=== PATIENT | female | born 1940 | race Caucasian/White ===

== ENCOUNTER 2020-10-25 14:35 | Observation (INO) | payer MEDICARE, BC ==
[2020-10-25 15:46] LABS: #Basophils 0.1 10x3/uL (0.0-0.2); #Eosinphils 0.2 10x3/uL (0.0-0.5); #Monocytes 0.9 10x3/uL (0.0-1.1); %Basophils 0.5 % (0.0-2.0); %Eosinophils 1.7 % (0.0-6.0); %Lymphocytes 30.9 % (18.0-47.0); %Monocytes 8.3 % (0.0-10.0); %Neutrophils 58.2 % (40.0-75.0); Hemoglobin 13.9 g/dL (12.0-15.5); Mean Corpuscular HGB CONC 33.2 g/dL (32.0-36.0); Mean Corpuscular Hemoglobin 30.4 pg (27.0-33.0); Mean Corpuscular Volume 91.7 fl (81.6-98.3); Platelet Count 297 10x3/uL (150-450); RBC Distribution Width 12.7 % (11.5-14.5); Red Blood Cell (RBC) Count 4.57 10x6/uL (3.90-5.03); White Blood Cell (WBC) Count 10.3 10x3/uL (3.5-10.5)
[2020-10-25 16:03] LABS: ALT (SGPT) 41 U/L (8-55); AST (SGOT) 52 U/L (5-34); Albumin 4.5 g/dL (3.4-4.8); Alkaline Phosphatase 128 U/L (40-110); Anion Gap 18 mmol/L (10-20); BUN (Urea Nitrogen) 25 mg/dL (9.8-20.1); Bilirubin, Total 0.5 mg/dL (0.2-1.2); Calc. Creatinine Clearance 0 mL/min (70-130); Calcium 10.7 mg/dL (7.8-10.44); Carbon Dioxide 24 mmol/L (23-31); Chloride 102 mmol/L (98-107); Globulin 3.4 g/dL (2.4-3.5); Glucose 91 mg/dL (83-110); Potassium 4.2 mmol/L (3.5-5.1); Protein, Total 7.9 g/dL (5.8-8.1); Sodium 140 mmol/L (136-145)
[2020-10-25] MEDS ORDERED: Nitroglycerin 0.4 MG TAB (25 Tab Bottle) SL PRN (16:58)
[2020-10-25] MEDS ORDERED: Ondansetron PF 4 MG/2 ML Vial IVP PRN (17:01)
[2020-10-25] MEDS ORDERED: Nitroglycerin 2% Ointment 1 INCH/1 GM Packet ONE (17:01)
[2020-10-25] MEDS ORDERED: Acetaminophen 325 MG TAB PO PRN (17:01)
[2020-10-25] MEDS ORDERED: Aspirin Chewable 81 MG TAB ONE (17:01)
[2020-10-25] MEDS ORDERED: Ondansetron ODT 4 MG TAB PO PRN (17:01)
[2020-10-25] MEDS ORDERED: Dextrose 50% Abboject 50 ML SYRINGE SLOW IVP PRN (17:03)
[2020-10-25] MEDS ORDERED: HumaLOG 300 UNITS/3 ML VIAL SC PRN ×2 (17:03)
[2020-10-25] MEDS ORDERED: Dextrose 5% in Water 1,000 ML IV PRN (17:03)
[2020-10-25] MEDS ORDERED: hydrALAZINE 20 MG/ML VIAL SLOW IVP PRN (17:28)
[2020-10-25 20:49] VITALS: BMI 34.9
[2020-10-25] MEDS ORDERED: Famotidine 20 MG TAB PO SCH ×2 (21:00)
[2020-10-25] MEDS: Nitroglycerin 2% Ointment 1 INCH/1 GM Packet TOP SCH (23:17)
[2020-10-26] MEDS: Nitroglycerin 2% Ointment 1 INCH/1 GM Packet TOP SCH ×2 (05:42→13:13)
[2020-10-26 05:55] LABS: #Eosinphils 0.2 10x3/uL (0.0-0.5); #Monocytes 0.8 10x3/uL (0.0-1.1); #Neutrophils 4.8 10x3/uL (1.5-8.4); %Basophils 0.4 % (0.0-2.0); %Eosinophils 2.2 % (0.0-6.0); %Lymphocytes 35.6 % (18.0-47.0); %Monocytes 9.1 % (0.0-10.0); %Neutrophils 52.2 % (40.0-75.0); Hemoglobin 12.6 g/dL (12.0-15.5); Mean Corpuscular HGB CONC 33.4 g/dL (32.0-36.0); Mean Corpuscular Hemoglobin 30.2 pg (27.0-33.0); Mean Corpuscular Volume 90.4 fl (81.6-98.3); Platelet Count 297 10x3/uL (150-450); RBC Distribution Width 12.9 % (11.5-14.5); Red Blood Cell (RBC) Count 4.17 10x6/uL (3.90-5.03); White Blood Cell (WBC) Count 9.2 10x3/uL (3.5-10.5)
[2020-10-26 06:04] LABS: ALT (SGPT) 30 U/L (8-55); AST (SGOT) 35 U/L (5-34); Albumin 3.8 g/dL (3.4-4.8); Alkaline Phosphatase 108 U/L (40-110); Anion Gap 14 mmol/L (10-20); BUN (Urea Nitrogen) 23 mg/dL (9.8-20.1); Bilirubin, Total 0.4 mg/dL (0.2-1.2); Calc. Creatinine Clearance 47 mL/min (70-130); Calcium 10.2 mg/dL (7.8-10.44); Carbon Dioxide 25 mmol/L (23-31); Cardiac Risk 5.6 (Less than 4.5); Chloride 106 mmol/L (98-107); Cholesterol 139 mg/dl (< 200 Desired); Globulin 2.8 g/dL (2.4-3.5); Glucose 114 mg/dL (83-110); HDL Cholesterol 25 mg/dL (>60 Neg Risk); Potassium 3.7 mmol/L (3.5-5.1); Protein, Total 6.6 g/dL (5.8-8.1); Sodium 141 mmol/L (136-145); Triglycerides 436 mg/dL (Less than 150)
[2020-10-26 06:22] LABS: Bilirubin Neg (Negative); Blood, Urine Negative (Negative); Clarity Clear (Clear); Glucose, Urine (Dipstick) Normal (Negative); Ketone, Urine Negative (Negative); Leukocyte 100 (Negative); Nitrite Negative (Negative); Protein, Urine (Dipstick) Negative (Neg-Trace); Specific Gravity, Urine 1.015 (1.002-1.036); Urobilinogen Normal mg/dL (Less than 2)
[2020-10-26 06:37] LABS: Bacteria/HPF None Seen HPF (None Seen); RBC/HPF 0-3 HPF (0-3); Squamous Epithelial 0-3 HPF (0-3); Transitional Epithelial 0-3 HPF (None Seen)
[2020-10-26] MEDS ORDERED: Aspirin 325 MG TAB PO SCH (09:00)
[2020-10-26 15:31] VITALS: BP 139/81; TEMP 98.3
[2020-10-26] MEDS ORDERED: Icosapent Ethyl 1 GM CAPSULE PO SCH (17:00)
[2020-10-26 21:43] LABS: SARS-CoV-2 PCR by NAA Not Detected (NotDetected)
[2020-10-27] MEDS ORDERED: Aspirin 81 mg Enteric Coated Tablet PO SCH (09:00)
[2020-10-27] MEDS ORDERED: Amlodipine 5 MG TAB PO SCH (09:00)
[2020-10-27] MEDS ORDERED: Rosuvastatin 20 MG TAB PO SCH (09:00)
[2020-10-27] MEDS ORDERED: ALPRAZolam 0.5 MG TAB PO SCH (09:00)
[2020-10-27] MEDS ORDERED: Ascorbic Acid 500 mg Chewable Tablet PO SCH (09:00)
== END 2020-10-26 16:48 | disposition home or self-care (01) ==
LOC: CSHERS 14:35 → CSHTELE 19:58
PROVIDERS: ADMIT Hospitalist; ATTEND Nurse Practitioner Family
DX: R07.9 Chest pain, unspecified (principal); I16.0 Hypertensive urgency; E11.22 Type 2 diabetes mellitus with diabetic chronic kidney disease; I12.9 Hypertensive chronic kidney disease with stage 1 through stage 4 chronic kidney disease, or unspecified chronic kidney disease; N18.30 Chronic kidney disease, stage 3 unspecified; E78.5 Hyperlipidemia, unspecified; I73.9 Peripheral vascular disease, unspecified; Q28.2 Arteriovenous malformation of cerebral vessels; Z79.899 Other long term (current) drug therapy; Z79.82 Long term (current) use of aspirin; Z95.5 Presence of coronary angioplasty implant and graft; Z90.49 Acquired absence of other specified parts of digestive tract; Z90.710 Acquired absence of both cervix and uterus; Z20.822 Contact with and (suspected) exposure to COVID-19
CPT/HCPCS: 71045; 80053; 80061; 81001; 82962 ×2; 83735; 84484 ×2; 85025; 93005; 93306; 99285; G0378 ×3; U0003; U0005; 36415; 36416; 84443; 87635

== ENCOUNTER 2021-04-30 13:04 | Outpatient (CLI) | payer MEDICARE, BC | END 2021-04-30 13:05 | disposition home or self-care (01) | LOC: CSHMAMMO 13:04 | PROVIDERS: ATTEND Internal Medicine | DX: Z12.31 Encounter for screening mammogram for malignant neoplasm of breast (principal) | CPT/HCPCS: 77063; 77067 ==

== ENCOUNTER 2022-01-03 12:41 | Outpatient (CLI) | payer MEDICARE, BC | END 2022-01-03 12:42 | disposition home or self-care (01) | LOC: CSHULT 12:41 | PROVIDERS: ATTEND Otolaryngology Otolaryngic Allergy | DX: E04.1 Nontoxic single thyroid nodule (principal); E04.2 Nontoxic multinodular goiter | CPT/HCPCS: 76536 ==

== ENCOUNTER 2022-02-09 10:55 | Outpatient (CLI) | payer MEDICARE, BC | END 2022-02-09 10:56 | disposition home or self-care (01) | LOC: CSHRAD 10:55 | PROVIDERS: ATTEND Otolaryngology Otolaryngic Allergy | DX: R13.11 Dysphagia, oral phase (principal); R13.12 Dysphagia, oropharyngeal phase; K21.9 Gastro-esophageal reflux disease without esophagitis | CPT/HCPCS: 74230 ==

== ENCOUNTER 2022-08-08 13:09 | Outpatient (CLI) | payer MEDICARE, BC | END 2022-08-08 13:10 | disposition home or self-care (01) | LOC: CSHMAMMO 13:09 | PROVIDERS: ATTEND Internal Medicine | DX: Z12.31 Encounter for screening mammogram for malignant neoplasm of breast (principal) | CPT/HCPCS: 77063; 77067 ==

== ENCOUNTER 2023-05-08 09:53 | Emergency (ER) | payer MEDICARE, BC ==
[2023-05-08] MEDS ORDERED: Ondansetron PF 4 MG/2 ML Vial ONE (11:10)
[2023-05-08 11:17] LABS: #Basophils 0.1 10x3/uL (0.0-0.2); #Eosinphils 0.2 10x3/uL (0.0-0.5); #Monocytes 0.9 10x3/uL (0.0-1.1); #Neutrophils 6.5 10x3/uL (1.5-8.4); %Basophils 0.6 % (0.0-2.0); %Eosinophils 2.1 % (0.0-6.0); %Lymphocytes 32.7 % (18.0-47.0); %Monocytes 7.6 % (0.0-10.0); %Neutrophils 56.1 % (40.0-75.0); Hematocrit 41.1 % (34.9-44.5); Hemoglobin 13.7 g/dL (12.0-15.5); Mean Corpuscular HGB CONC 33.3 g/dL (32.0-36.0); Mean Corpuscular Hemoglobin 30.6 pg (27.0-33.0); Mean Corpuscular Volume 91.7 fl (81.6-98.3); Mean Platelet Volume 11.2 fl (7.4-10.4); PTT 22.5 sec (22.0-33.0); Platelet Count 283 10x3/uL (150-450); Prothrombin Time 10.5 sec (9.5-12.1); RBC Distribution Width 12.9 % (11.5-14.5); Red Blood Cell (RBC) Count 4.48 10x6/uL (3.90-5.03); White Blood Cell (WBC) Count 11.6 10x3/uL (3.5-10.5)
[2023-05-08 11:22] LABS: ALT (SGPT) 16 U/L (8-55); AST (SGOT) 32 U/L (5-34); Albumin 4.3 g/dL (3.4-4.8); Alkaline Phosphatase 95 U/L (40-110); Anion Gap 16 mmol/L (10-20); BUN (Urea Nitrogen) 26 mg/dL (9.8-20.1); Bilirubin, Total 0.5 mg/dL (0.2-1.2); Calc. Creatinine Clearance 0 mL/min (70-130); Calcium 9.9 mg/dL (7.8-10.44); Carbon Dioxide 23 mmol/L (23-31); Chloride 105 mmol/L (98-107); Estimated GFR 44; Glucose 199 mg/dL (83-110); Potassium 3.7 mmol/L (3.5-5.1); Protein, Total 7.3 g/dL (5.8-8.1); Sodium 140 mmol/L (136-145)
[2023-05-08 11:24] LABS: Troponin I 0.021 ng/mL (< 0.028)
[2023-05-08] MEDS ORDERED: niCARdipine 25 MG/10 ML SDV ONE (11:28)
== END 2023-05-08 12:23 | disposition short-term general hospital (02) ==
LOC: CSHERS 09:53
DX: I61.4 Nontraumatic intracerebral hemorrhage in cerebellum (principal); I10 Essential (primary) hypertension; E11.9 Type 2 diabetes mellitus without complications; E78.00 Pure hypercholesterolemia, unspecified; Z79.899 Other long term (current) drug therapy; Z79.82 Long term (current) use of aspirin
CPT/HCPCS: 36416; 70450; 71045; 80053; 84484; 85025; 85610; 85730; J2405

== ENCOUNTER 2023-06-14 22:04 | Emergency (ER) | payer BC, MEDICARE | END 2023-06-14 23:22 | disposition home or self-care (01) | LOC: CSHERS 22:04 | DX: I10 Essential (primary) hypertension (principal); E11.9 Type 2 diabetes mellitus without complications; E78.00 Pure hypercholesterolemia, unspecified; Z79.899 Other long term (current) drug therapy; Z87.891 Personal history of nicotine dependence | CPT/HCPCS: 70450 ==

== ENCOUNTER 2023-07-23 18:19 | Emergency (ER) | payer MEDICARE ==
[2023-07-23 20:13] LABS: #Eosinphils 0.1 10x3/uL (0.0-0.5); #Monocytes 0.7 10x3/uL (0.0-1.1); #Neutrophils 5.9 10x3/uL (1.5-8.4); %Basophils 0.3 % (0.0-2.0); %Eosinophils 1.1 % (0.0-6.0); %Monocytes 7.9 % (0.0-10.0); %Neutrophils 64.3 % (40.0-75.0); Hematocrit 40.3 % (34.9-44.5); Hemoglobin 13.9 g/dL (12.0-15.5); Mean Corpuscular HGB CONC 34.5 g/dL (32.0-36.0); Mean Corpuscular Hemoglobin 31.6 pg (27.0-33.0); Mean Corpuscular Volume 91.6 fl (81.6-98.3); Mean Platelet Volume 10.7 fl (7.4-10.4); Platelet Count 256 10x3/uL (150-450); RBC Distribution Width 12.8 % (11.5-14.5); White Blood Cell (WBC) Count 9.2 10x3/uL (3.5-10.5)
[2023-07-23 20:37] LABS: Bilirubin Neg (Negative); Blood, Urine 10 (Negative); Clarity Slightly Cloudy (Clear); Glucose, Urine (Dipstick) Normal (Negative); Ketone, Urine 5 mg/dL (Negative); Leukocyte 500 (Negative); Nitrite Negative (Negative); Protein, Urine (Dipstick) 100 mg/dl (Neg-Trace); Specific Gravity, Urine 1.015 (1.005-1.030); Urobilinogen Normal mg/dL (Less than 2)
[2023-07-23 20:42] LABS: ALT (SGPT) 14 U/L (8-55); AST (SGOT) 21 U/L (5-34); Albumin 4.3 g/dL (3.4-4.8); Alkaline Phosphatase 95 U/L (40-110); Anion Gap 15 mmol/L (10-20); BUN (Urea Nitrogen) 24 mg/dL (9.8-20.1); Bilirubin, Total 0.3 mg/dL (0.2-1.2); Calc. Creatinine Clearance 0 mL/min (70-130); Carbon Dioxide 28 mmol/L (23-31); Chloride 102 mmol/L (98-107); Estimated GFR 38; Glucose 117 mg/dL (83-110); Potassium 3.5 mmol/L (3.5-5.1); Protein, Total 7.3 g/dL (5.8-8.1); Sodium 141 mmol/L (136-145)
[2023-07-23 20:48] LABS: Troponin I 0.016 ng/mL (< 0.028)
[2023-07-23 20:54] LABS: Bacteria/HPF Rare-Few HPF (None Seen); CAUTI Indications for Culture Dysuria,urgency,freq; RBC/HPF 0-3 HPF (0-3); WBC/HPF Greater than 50 HPF (0-3)
[2023-07-23 20:59] LABS: Urine Culture Reflex Yes Yes
== END 2023-07-23 21:14 | disposition home or self-care (01) ==
LOC: CSHERS 18:19
DX: N39.0 Urinary tract infection, site not specified (principal); I10 Essential (primary) hypertension; E11.9 Type 2 diabetes mellitus without complications; Z87.891 Personal history of nicotine dependence
CPT/HCPCS: 80053; 81001; 84484; 85025; 87086; 93005

== ENCOUNTER 2023-09-19 20:43 | Emergency (ER) | payer MEDICARE ==
[2023-09-19] MEDS ORDERED: Ondansetron PF 4 MG/2 ML Vial ONE (22:18)
[2023-09-19 22:27] LABS: Bilirubin Neg (Negative); Blood, Urine Negative (Negative); Clarity Clear (Clear); Glucose, Urine (Dipstick) Normal (Negative); Ketone, Urine Negative (Negative); Leukocyte 25 (Negative); Nitrite Negative (Negative); Protein, Urine (Dipstick) 30 mg/dl (Neg-Trace); Urobilinogen Normal mg/dL (Less than 2)
[2023-09-19 22:33] LABS: #Basophils 0.03 10x3/uL (0.0-0.2); #Eosinphils 0.15 10x3/uL (0.0-0.5); #Monocytes 0.78 10x3/uL (0.0-1.1); %Basophils 0.3 % (0.0-2.0); %Eosinophils 1.4 % (0.0-6.0); %Lymphocytes 20.8 % (18.0-47.0); %Monocytes 7.2 % (0.0-10.0); %Neutrophils 69.7 % (40.0-75.0); Hematocrit 35.7 % (34.9-44.5); Hemoglobin 12.1 g/dL (12.0-15.5); Mean Corpuscular HGB CONC 33.9 g/dL (32.0-36.0); Mean Corpuscular Hemoglobin 31.1 pg (27.0-33.0); Mean Corpuscular Volume 91.8 fl (81.6-98.3); Mean Platelet Volume 10.3 fl (7.4-10.4); Platelet Count 418 10x3/uL (150-450); RBC Distribution Width 14.7 % (11.5-14.5); Red Blood Cell (RBC) Count 3.89 10x6/uL (3.90-5.03); White Blood Cell (WBC) Count 10.9 10x3/uL (3.5-10.5)
[2023-09-19 22:42] LABS: CAUTI Indications for Culture Pelvic or flank pain
[2023-09-19 22:43] LABS: RBC/HPF 0-3 HPF (0-3)
[2023-09-19 22:46] LABS: Bacteria/HPF 1+ HPF (None Seen)
[2023-09-19 22:46] LABS: ALT (SGPT) 10 U/L (8-55); AST (SGOT) 21 U/L (5-34); Albumin 3.7 g/dL (3.4-4.8); Alkaline Phosphatase 89 U/L (40-110); Anion Gap 16 mmol/L (10-20); BUN (Urea Nitrogen) 26 mg/dL (9.8-20.1); Bilirubin, Total 0.6 mg/dL (0.2-1.2); Calc. Creatinine Clearance 0 mL/min (70-130); Calcium 10.7 mg/dL (7.8-10.44); Carbon Dioxide 26 mmol/L (23-31); Chloride 102 mmol/L (98-107); Estimated GFR 46; Globulin 3.8 g/dL (2.4-3.5); Glucose 115 mg/dL (83-110); Lipase 35 U/L (8-78); Magnesium 1.7 mg/dL (1.6-2.6); Potassium 3.6 mmol/L (3.5-5.1); Protein, Total 7.5 g/dL (5.8-8.1); Sodium 140 mmol/L (136-145)
[2023-09-19 22:47] LABS: Urine Culture Reflex Yes Yes
== END 2023-09-19 23:22 | disposition home or self-care (01) ==
LOC: CSHERS 20:43
DX: R11.2 Nausea with vomiting, unspecified (principal); I10 Essential (primary) hypertension; E11.9 Type 2 diabetes mellitus without complications; Z79.82 Long term (current) use of aspirin; Z87.891 Personal history of nicotine dependence; Z79.899 Other long term (current) drug therapy
CPT/HCPCS: 80053; 81001; 83690; 83735; 85025; 87086; 93005; 96361; 96374; J2405

== ENCOUNTER 2024-05-13 19:54 | Emergency (ER) | payer MEDICARE ==
[2024-05-13 22:18] LABS: #Basophils 0.03 10x3/uL (0.0-0.2); #Eosinophils 0.12 10x3/uL (0.0-0.5); #Monocytes 0.57 10x3/uL (0.0-1.1); #Neutrophils 5.29 10x3/uL (1.5-8.4); %Basophils 0.4 % (0.0-2.0); %Eosinophils 1.4 % (0.0-6.0); %Lymphocytes 28.5 % (18.0-47.0); %Monocytes 6.7 % (0.0-10.0); %Neutrophils 62.6 % (40.0-75.0); Hematocrit 41.7 % (34.9-44.5); Mean Corpuscular HGB CONC 33.6 g/dL (32.0-36.0); Mean Corpuscular Volume 92.5 fL (81.6-98.3); Mean Platelet Volume 10.3 fL (7.4-10.4); Platelet Count 227 10x3/uL (150-450); RBC Distribution Width 12.8 % (11.5-14.5); Red Blood Cell (RBC) Count 4.51 10x6/uL (3.90-5.03); White Blood Cell (WBC) Count 8.5 10x3/uL (3.5-10.5)
[2024-05-13 22:33] LABS: ALT (SGPT) 28 U/L (8-55); AST (SGOT) 29 U/L (5-34); Alkaline Phosphatase 116 U/L (40-110); Anion Gap 14 mmol/L (10-20); BUN (Urea Nitrogen) 38 mg/dL (9.8-20.1); Bilirubin, Total 0.3 mg/dL (0.2-1.2); Calc. Creatinine Clearance 0 mL/min (70-130); Calcium 10.2 mg/dL (7.8-10.44); Carbon Dioxide 26 mmol/L (23-31); Chloride 105 mmol/L (98-107); Estimated GFR 54; Globulin 3.5 g/dL (2.4-3.5); Glucose 124 mg/dL (83-110); Potassium 3.9 mmol/L (3.5-5.1); Protein, Total 7.5 g/dL (5.8-8.1); Sodium 141 mmol/L (136-145)
[2024-05-13 22:39] LABS: Troponin I Less than 0.010 ng/mL (< 0.028)
[2024-05-13 22:42] LABS: Prothrombin Time 10.9 sec (9.5-12.1)
[2024-05-13 22:43] LABS: PTT 21.2 sec (22.0-33.0)
[2024-05-13] MEDS ORDERED: hydrALAZINE 20 MG/ML VIAL ONE (23:29)
== END 2024-05-14 00:46 | disposition home or self-care (01) ==
LOC: CSHERS 19:54
DX: R91.1 Solitary pulmonary nodule (principal); I10 Essential (primary) hypertension; E11.51 Type 2 diabetes mellitus with diabetic peripheral angiopathy without gangrene; E78.00 Pure hypercholesterolemia, unspecified; Z55.6 Problems related to health literacy; Z79.82 Long term (current) use of aspirin; Z79.899 Other long term (current) drug therapy; Z87.891 Personal history of nicotine dependence
CPT/HCPCS: 70496; 70498; 71045; 83735; 83880; 84484; 85610; 85730; 93005; J0360; 80053; 84443; 85025; 93010; 96374

== ENCOUNTER 2025-01-13 14:02 | Outpatient (CLI) | payer MEDICARE | END 2025-01-13 14:03 | disposition home or self-care (01) | LOC: CSHMAMMO 14:02 | PROVIDERS: ATTEND Physician Assistant | DX: N64.4 Mastodynia (principal) | CPT/HCPCS: 77065; G0279 ==

== ENCOUNTER 2025-02-13 15:37 | Outpatient (CLI) | payer MEDICARE | END 2025-02-13 15:38 | disposition home or self-care (01) | LOC: CSHCP 15:37 | PROVIDERS: ATTEND Internal Medicine | DX: R91.8 Other nonspecific abnormal finding of lung field (principal); R94.2 Abnormal results of pulmonary function studies | CPT/HCPCS: 94060; 94726; 94729; 94760 ==